=== PATIENT | female | born 1960 | race African-American/Black ===

== ENCOUNTER 2017-12-28 12:16 | Emergency (ER) | payer OTHER ==
[~2017-12-28] VITALS: Ht 170.2 cm; Wt 67.1 kg
[~2017-12-28 12:16] MED LIST: ACETAMINOPHEN-1 EAC1 PO; ALEVE220 MG; BENTYL10 MG PO; ERYTHROMYCIN E3.5 G3 OPHTHALMIC; IBUPROFEN 200200 M1; KEFLEX500 M1 PO; MEDROLDOSEPACK PO; NAPROSYN500 MG PO; NOHOMEMEDICATIONS; NORCO 5-325 TA1 EACH PO; PENICILLIN VK500 MG PO; PERCOCET 5-3251 EACH PO; PHENERGAN 25 MG25 M1 PO; PHENERGAN 25 MG25 MG PO; ZOFRAN ODT4 MG PO
[2017-12-28 16:10] VITALS: BP 144/93
== END 2017-12-28 17:00 | disposition home or self-care (01) ==
LOC: ER 12:16
PROC: 0DJ08ZZ Inspection of Upper Intestinal Tract, Via Natural or Artificial Opening Endoscopic (ICD-10-PCS; principal; 2017-12-28)
DX: T18.9XXA Foreign body of alimentary tract, part unspecified, initial encounter (principal); F17.210 Nicotine dependence, cigarettes, uncomplicated; Z88.6 Allergy status to analgesic agent; Z88.5 Allergy status to narcotic agent; Z90.710 Acquired absence of both cervix and uterus; X58.XXXA Exposure to other specified factors, initial encounter; Y92.89 Other specified places as the place of occurrence of the external cause; Y93.89 Activity, other specified; Y99.8 Other external cause status
CPT/HCPCS: 62110; 62900; 70005

== ENCOUNTER 2018-06-28 10:25 | Emergency (ER) | payer OTHER ==
[~2018-06-28] VITALS: Ht 167.6 cm; Wt 67.1 kg
[2018-06-28] MEDS ORDERED: TRAMADOL 50 MG50 MG PO (11:21)
[2018-06-28] MEDS ORDERED: NAPROSYN500 MG PO (11:21)
[2018-06-28] MEDS ORDERED: NORFLEX100 MG PO (11:21)
[2018-06-28] MEDS ORDERED: ACETAMINOPHEN-1 EAC1 PO (12:07)
[2018-06-28 13:10] VITALS: BP 144/87
[2018-06-28] MEDS ORDERED: PROMS25 WY RECTAL (13:37)
== END 2018-06-28 13:40 | disposition home or self-care (01) ==
LOC: ER 10:25
DX: S39.012A Strain of muscle, fascia and tendon of lower back, initial encounter (principal); F17.210 Nicotine dependence, cigarettes, uncomplicated; Z88.6 Allergy status to analgesic agent; Z88.5 Allergy status to narcotic agent; Z90.710 Acquired absence of both cervix and uterus; X50.1XXA Overexertion from prolonged static or awkward postures, initial encounter; Y92.89 Other specified places as the place of occurrence of the external cause; Y93.H2 Activity, gardening and landscaping; Y99.8 Other external cause status

== ENCOUNTER 2018-10-08 22:58 | Emergency (ER) | payer OTHER ==
[~2018-10-08] VITALS: Ht 167.6 cm; Wt 68.0 kg
[~2018-10-08 22:58] MED LIST changes: +NORFLEX100 MG PO; +PROMS25 WY RECTAL; +TRAMADOL 50 MG50 MG PO
[2018-10-09] MEDS ORDERED: MOBIC15 MG PO (00:53)
[2018-10-09 00:58] LABS: ABSOLUTE NEUTROPHILS 7.9 thou/uL (1.4-8.2); BASOPHILS 0.4 % (0.0-2.0); EOSINOPHILS 0.1 % (0.0-3.0); HEMATOCRIT 38.8 % (37.0-47.0); HEMOGLOBIN 13.2 gm/dL (12.0-15.0); LYMPHOCYTES 6.5 % (24.0-44.0); MCH 30.6 pg (26.0-34.0); MCV 89.9 fL (80.0-100.0); MONOCYTES 5.7 % (1.0-8.0); PLATELET COUNT 357 thou/uL (150-400); POLYS 87.3 % (36.0-66.0); RBC 4.32 mil/uL (4.20-5.00); RDW 13.5 % (10.5-14.5); WBC 9.1 thou/uL (4.0-11.0)
[2018-10-09] MEDS ORDERED: REGLAN 5 MG TAB5 MG PO (04:28)
[2018-10-09 04:30] VITALS: BP 162/96
[2018-10-09] MEDS ORDERED: PHENERGAN50 MG RECTAL (04:34)
[2018-10-09 05:15] LABS: CALCIUM 9.5 mg/dL (8.5-10.1); CREATININE 0.7 mg/dL (0.6-1.0); MAGNESIUM 1.4 mg/dL (1.8-2.4); POTASSIUM 3.2 mmol/L (3.5-5.1)
--- NOTE | 2018-10-10 07:57 | EKG ---
[place] [address] [facility] [place] [address] ELECTROCARDIOGRAM REPORT Name: JONNATHANJEREMYRASHIDAMASON Room #: [facility]P [facility] [id number] Admission: 10/08/18 Attend Phys: Discharge: 10/09/18 Date of : 64 Report #: [id number] THIS REPORT FOR: //name// [facility] ED Test Date: 2018-10-09 Test Time: 00:44:39 Pat Name: KRISTINE DE SANTIAGO Department: Room: Gender: F Senior Lead Project Manager: [facility] : 1960 Requested By: Jyoti Padilla Order Number: [id number] MD: Luis Wang Measurements Intervals [place] Rate: 100 P: 54 CT: 155 QRS: 54 QRSD: 79 T: 46 QT: 375 QTc: 484 Interpretive Statements Sinus tachycardia Anterior infarct, old Compared to ECG 06/11/2014 05:11:20 Septal Q waves are now present Electronically Signed On 10-10-2018 7:57:24 CDT by Luis Wang [email or web address] <ELECTRONICALLY SIGNED> By: Luis Wang MD, [facility] 10/10/18 0757 0044 0044 Luis Wang MD, FACC /EPI
== END 2018-10-09 04:35 | disposition home or self-care (01) ==
LOC: ER 22:58
PROVIDERS: Emergency Medicine
DX: G43.909 Migraine, unspecified, not intractable, without status migrainosus (principal); E83.42 Hypomagnesemia; R11.2 Nausea with vomiting, unspecified; F17.210 Nicotine dependence, cigarettes, uncomplicated; Z88.6 Allergy status to analgesic agent; Z88.5 Allergy status to narcotic agent; Z90.710 Acquired absence of both cervix and uterus

== ENCOUNTER 2020-08-18 23:03 | Emergency (ER) | payer OTHER ==
[~2020-08-18] VITALS: Ht 167.6 cm; Wt 63.5 kg
[~2020-08-18 23:03] MED LIST changes: +MOBIC15 MG PO; +PHENERGAN50 MG RECTAL; +REGLAN 5 MG TAB5 MG PO
[2020-08-18 23:47] LABS: ABSOLUTE NEUTROPHILS 2.1 thou/uL (1.4-8.2); BASOPHILS 0.8 % (0.0-2.0); EOSINOPHILS 6.2 % (0.0-3.0); HEMATOCRIT 34.7 % (37.0-47.0); HEMOGLOBIN 11.4 gm/dL (12.0-15.0); LYMPHOCYTES 43.5 % (24.0-44.0); MCH 30.9 pg (26.0-34.0); MCHC 32.8 g/dL (28.0-37.0); MONOCYTES 8.2 % (1.0-8.0); PLATELET COUNT 522 thou/uL (150-400); POLYS 41.3 % (36.0-66.0); RBC 3.69 mil/uL (4.20-5.00); RDW 13.6 % (10.5-14.5); WBC 5.2 thou/uL (4.0-11.0)
[2020-08-19 00:08] LABS: ANION GAP 12 mmol/L (7-16); BUN 11 mg/dL (7-18); CALCIUM 9.2 mg/dL (8.5-10.1); CHLORIDE 104 mmol/L (98-107); CO2 24 mmol/L (21-32); CREATININE 0.9 mg/dL (0.6-1.0); GLUCOSE 119 mg/dL (74-106); POTASSIUM 3.7 mmol/L (3.5-5.1); SODIUM 140 mmol/L (136-145)
[2020-08-19 00:18] LABS: ALBUMIN 3.4 g/dL (3.4-5.0); DIRECT BILIRUBIN < 0.1 mg/dL (<0.1-0.2); SGOT 28 U/L (15-37); SGPT 52 U/L (14-59); TOTAL BILIRUBIN 0.2 mg/dL (0.2-1.0); TOTAL PROTEIN 6.9 g/dL (6.4-8.2); TROPONIN-I <0.06 ng/mL (<0.06)
[2020-08-19 02:28] VITALS: BP 134/87
--- NOTE | 2020-08-19 07:15 | EKG ---
[place] [address] [facility] [address] ELECTROCARDIOGRAM REPORT Name: JONNATHANJEREMYRASHIDAMASON Room #: DEP [facility] [id number] Admission: 08/18/20 Attend Phys: Discharge: 08/19/20 Date of : 64 Report #: [id number] [facility] ED Test Date: 2020-08-18 Test Time: 23:45:15 Pat Name: KRISTINE DE SANTIAGO Department: Room: Gender: F Master Glazier: [email or web address] : 1960 Requested By: Meet Santiago Order Number: [id number] MD: Rick Hurt Measurements Intervals [place] Rate: 65 P: 57 MI: 182 QRS: 46 QRSD: 92 T: 29 QT: 405 QTc: 422 Interpretive Statements Sinus rhythm Anteroseptal infarct, old Compared to ECG 10/09/2018 00:44:39 Sinus tachycardia no longer present Myocardial infarct finding still present Electronically Signed On 08-19-2020 7:14:48 CDT by Rick Hurt [email or web address] <ELECTRONICALLY SIGNED> By: Rick Hurt MD, [facility] 08/19/20 0714 D: 06/2344 Rick Hurt MD, FACC /EPI
== END 2020-08-19 02:10 | disposition home or self-care (01) ==
LOC: ER 23:03
PROVIDERS: Emergency Medicine
DX: R60.0 Localized edema (principal); F17.210 Nicotine dependence, cigarettes, uncomplicated; F12.90 Cannabis use, unspecified, uncomplicated; Z88.6 Allergy status to analgesic agent; Z88.5 Allergy status to narcotic agent; Z79.899 Other long term (current) drug therapy; Z90.710 Acquired absence of both cervix and uterus